=== PATIENT | female | born 1995 | race Caucasian/White ===

== ENCOUNTER 2018-01-12 10:06 | Emergency (ER) | payer BC ==
--- NOTE | 2018-01-12 10:13 | ED Physician Documentation ---
General Adult - HISTORIAN Historian: patient - HPI Stated Complaint: fever, chills, head congestion Chief Complaint: Fever Onset: days ago (1) Timing: still present Severity: mild Further Comments: yes (She does work at a daycare. she notes last night she started to have the chills and she feels she had a fever (did not measure) she did not try any OTC meds. She has head congestion. No cough. Mild sore throat. Ear pain (both) No rash No other complaints) Last known Well Code/Unknown Code: Unknown - ROS CONST: fever. denies: recent illness EYES/ENT: sore throat, nasal drainage, nasal congestion. denies: problems with vision CVS/RESP: denies: chest pain, shortness of breath, cough GI/: denies: vomiting, nausea NEURO/PSYCH: headache - PAST HX Past History: none Other History: none Immunizations: UTD Allergies/Adverse Reactions: Allergies Allergy/AdvReac Type Severity Reaction Status Date / Time No Known Drug Allergies Allergy Unverified 12/30/17 13:20 - SOCIAL HX Smoking History: cigarettes Alcohol Use: none Drug Use: none - FAMILY HX Family History: No - REVIEWED ASSESSMENTS Nursing Assessment Reviewed: Yes Vitals Reviewed: Yes Progress - Progress Progress: 1140: plan and results discussed . She is agreeable DG General Adult Physical Exam - PHYSICAL EXAM GENERAL APPEARANCE: no distress EENT: eye inspection normal, pharyngeal erythema, TM erythema (left ear ) RESPIRATORY: no resp distress, chest non-tender, breath sounds normal CVS: reg rate & rhythm, heart sounds normal ABDOMEN: soft BACK: normal inspection SKIN: warm/dry, normal color EXTREMITIES: non-tender, normal range of motion, no evidence of injury, no edema NEURO: oriented X3 Discharge Clincal Impression: Otitis media of left ear Qualifiers: Otitis media type: unspecified Qualified Code(s): H66.92 - Otitis media, unspecified, left ear Referrals: Primary Doctor,No [Primary Care Provider] - 2 Days Comments: 1. Augmentin 875/125 mg take 1 by mouth twice daily x 10 days 2. Tylenol or Ibuprofen as needed (per directions ) for fever 3. Increase fluids 4. See PCP in 2-4 days 5. Return to ER for any concerns Condition: Stable Disposition: 01 HOME, SELF-CARE Decision to Admit: NO Date of Decison to Admit: 01/12/18 Decision Time: 11:45
[2018-01-12 12:01] VITALS: BP 121/64
== END 2018-01-12 11:15 | disposition home or self-care (01) ==
LOC: ED 10:06
DX: H66.92 Otitis media, unspecified, left ear (principal)
CPT/HCPCS: 87070; 87400; 87880

== ENCOUNTER 2018-02-17 15:08 | Outpatient (CLI) | payer BC | END 2018-02-17 15:13 | disposition home or self-care (01) | LOC: LAB 15:08 | PROVIDERS: ATTEND Physician Assistant | DX: N92.6 Irregular menstruation, unspecified (principal) | CPT/HCPCS: 36415; 84702 ==

== ENCOUNTER 2018-05-09 08:40 | Outpatient (CLI) | payer BC | END 2018-05-09 09:00 | LOC: LAB 08:40 | PROVIDERS: ATTEND Nurse Practitioner Family | DX: Z32.01 Encounter for pregnancy test, result positive (principal); Z34.00 Encounter for supervision of normal first pregnancy, unspecified trimester | CPT/HCPCS: 36415; 84702 ==